=== PATIENT | male | born 1970 | race Two or more races ===

== ENCOUNTER 2025-02-05 15:17 | Emergency (ER) | payer MEDICAID, SELFPAY ==
[2025-02-05 15:19] VITALS: BMI 26.6
[2025-02-05 16:14] VITALS: BP 127/79; PULSE 87; RESP 18; TEMP 36.9; O2SAT 99
--- NOTE | 2025-02-05 16:23 | XR_ITS ---
Examination: PA lateral chest 2 views TECHNIQUE: Upright PA lateral chest 2 views Exam date and time: February 05, 2025 1702 hours INDICATIONS: Chest pain today. FINDINGS: Normal heart size. Lungs are clear. The osseous structures are intact IMPRESSION: No active disease
--- NOTE | 2025-02-05 16:23 | EKG_ITS ---
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
--- NOTE | 2025-02-05 16:23 | PD.EDRME ---
Rapid Medical Screening Exam RME Arrival date/time: 02/05/25 15:17 This is a 54-year-old male presents emergency department with complaints of generalized weakness, fatigue worsening over 1 week. He does report his symptoms started after taking 1 scoop of creatinine [id number]. I have greeted and performed a focused initial assessment of this patient. Initial appropriate labs ordered at this time. A comprehensive ED assessment and evaluation of the patient and analysis of all test and completion of medical decision making process will be conducted by additional ED provider. Chief Complaint: Weakness Time Seen by Provider: 02/05/25 16:09 Vital signs: Vital Signs Temperature 98.5 F 02/05/25 16:14 Pulse Rate 87 02/05/25 16:14 Respiratory Rate 18 02/05/25 16:14 Blood Pressure 127/79 02/05/25 16:14 Pulse Oximetry (%) 99 02/05/25 16:14 Oxygen Delivery Method Room Air 02/05/25 16:14
[2025-02-05 16:49] LABS: Basophils % (Auto) 0 % (0-2.5); Eosinophils # (Auto) 0.1 Thou/mm3 (0.0-0.5); Eosinophils % (Auto) 1 % (0-10); Hematocrit 39.2 % (41.0-53.0); Hemoglobin 13.9 g/dL (13.5-16.0); Immature Granulocytes % (Auto) 1 % (0-0); Immature Granulocytes Auto 0.11 Thou/mm3 (0.00-0.00); Lymphocytes # (Auto) 1.7 Thou/mm3 (1.0-4.8); Lymphocytes % (Auto) 16 % (10-50); Mean Corpuscular HGB Conc 35.5 g/dl (31.0-37.0); Mean Corpuscular Hemoglobin 30.4 pg (25.0-35.0); Mean Corpuscular Volume 86 fL (80-100); Monocytes # (Auto) 0.7 Thou/mm3 (0.0-0.8); Monocytes % (Auto) 7 % (0-12); Neutrophils # (Auto) 7.6 Thou/mm3 (1.8-7.7); Neutrophils % (Auto) 74 % (37-80); Nucleated Red Blood Cell % 0 /100 WBC (0); Platelet Count 141 Thou/mm3 (140-440); RDW Standard Deviation 40.7 fL (35.1-43.9); Red Blood Count 4.57 Miln/mm3 (4.50-5.90); White Blood Count 10.2 Thou/mm3 (3.8-10.6)
[2025-02-05 17:05] LABS: Partial Thromboplastin Time 24.5 Seconds (22.0-36.0); Prothrombin Time 10.9 Seconds (9.0-12.2)
[2025-02-05 17:19] LABS: B-Type Natriuretic Peptide 31 pg/mL (0-100)
[2025-02-05 17:23] LABS: Alanine Aminotransferase 100 U/L (10-49); Albumin, Serum 3.6 gm/dL (3.5-5.0); Albumin/Globulin Ratio 1.3 (1.2-2.2); Alkaline Phosphatase 122 U/L (46-116); Anion Gap 8 (7-16); Aspartate Amino Transferase 78 U/L (0-34); BUN/Creatinine Ratio 14 Ratio (12-20); Bilirubin,Total 0.9 mg/dL (0.3-1.2); Blood Urea Nitrogen 15 mg/dL (9-23); Calcium 8.6 mg/dL (8.3-10.6); Calcium (Corrected) 8.9 mg/dL (8.5-10.1); Carbon Dioxide 24.8 mMol/L (20.0-31.0); Chloride 101 mMol/L (98-107); Creatine Kinase 45 U/L (34-171); Creatinine (Component) 1.1 mg/dL (0.6-1.3); Estimated Creatinine Clearance 75.1 mL/min (>60); Globulin 2.8 gm/dL (2.3-3.5); Glucose 172 mg/dL (74-106); Lipase 66 U/L (12-53); Magnesium 2.3 mg/dL (1.6-2.6); Osmolality,Calculated 273 (275-295); Sodium 134 mMol/L (136-145); Total Protein 6.4 gm/dL (5.7-8.2); Troponin I < 0.002 ng/mL (0.0-0.045); eGFR > 60 See Note
--- NOTE | 2025-02-05 19:31 | PD.EDADULT ---
ED General RME/HPI General Chief complaint: Weakness Stated complaint: WEAKNESS AND UNABLE TO SLEEP SINCE LAST WEEK Time Seen by Provider: 02/05/25 16:09 Arrival date/time: 02/05/25 15:17 54-year-old male presents with a 2-week history of fatigue and weakness as well as difficulty sleeping for 8 days and headache for the past 7 days. He has also had a chronic cough for which she takes Tessalon Perles. His primary care physician is located in [facility]. He was also given hydroxyzine for sleep as well as ibuprofen for his headaches, which he states is not helping. He denies fever but has had chills. Shortness of breath or pain in his chest, nausea, vomiting, diarrhea or abdominal pain. Mode of arrival: ambulatory Limitations: language barrier (Clinical Biostatistician utilized.) RME / HPI RME / HPI narrative: 02/05/25 15:17 This is a 54-year-old male presents emergency department with complaints of generalized weakness, fatigue worsening over 1 week. He does report his symptoms started after taking 1 scoop of creatinine [id number]. I have greeted and performed a focused initial assessment of this patient. Initial appropriate labs ordered at this time. A comprehensive ED assessment and evaluation of the patient and analysis of all test and completion of medical decision making process will be conducted by additional ED provider. Related Data Previous Rx's ?Medication ?Instructions ?Recorded [id number] 250 2 tab PO Q6H PRN headache #30 tabs 02/05/25 mg-250 mg-65 mg tablet (Excedrin Migraine) levocetirizine 5 mg tablet (Xyzal) 5 mg PO QPM PRN allergy symptoms 02/05/25 #30 tabs Allergies Allergy/AdvReac Type Severity Reaction Status Date / Time No Known Allergies Allergy Verified 02/05/25 15:19 Review of Systems Review of Systems Systems Reviewed: All systems reviewed, normal except as documented Constitutional Constitutional: Reports chills, Reports fatigue, Reports headache(s) and Reports malaise ENT Ears, Nose, Mouth, and Throat: Denies dizziness, Reports headache(s) and Denies vertigo Cardiovascular Cardiovascular: Denies chest pain, Denies dyspnea, Denies dyspnea on exertion, Denies irregular heart rhythm, Denies lightheadedness, Denies palpitations and Denies syncope Respiratory Respiratory: Reports cough, Denies dyspnea and Denies dyspnea on exertion Gastrointestinal Gastrointestinal: Denies abdominal pain, Denies constipation, Denies nausea and Denies vomiting Neurologic Neurologic: Reports as per HPI, Denies dizziness, Reports headache(s), Denies syncope and Denies vertigo Psychiatric Psychiatric: Reports abnormal sleep pattern Endocrine Endocrine: Reports fatigue and Denies palpitations ED Exam General Limitations: Present language barrier (Clinical Biostatistician utilized.) Head Head exam: Present atraumatic and normocephalic Eye Eye exam: Present EOMI and scleral icterus; Absent conjunctival injection ENT ENT exam: Present normal oropharynx, mucous membranes moist and TM's normal bilaterally Expanded ENT Exam Nose exam: Present other (pale boggy nares); Absent sinus tenderness Mouth exam: Present normal external inspection Throat exam: Present normal inspection; Absent tonsillar erythema, tonsillomegaly or tonsillar exudate Neck Neck exam: Present normal inspection and full ROM; Absent lymphadenopathy Chest Chest inspection: Present normal inspection Respiratory Respiratory exam: Present normal lung sounds bilaterally and other (tickle type cough) Cardiovascular Cardiovascular exam: Present regular rate and normal rhythm Abdominal Exam Abdominal exam: Present soft; Absent tenderness, guarding or rebound Extremities Exam Extremities exam: Present normal inspection Neurological Exam Neurological exam: Present alert and oriented X3 Psychiatric Psychiatric exam: Present anxious Skin Skin exam: Present warm, dry and intact Course Orders Category Date Time Status Bedside COVID-19 Antigen Test NOW Care 02/05/25 16:23 Active Bedside Influenza A&B Antigen Test NOW Care 02/05/25 16:23 Completed EKG (ED ONLY) *Do not use* NOW Care 02/05/25 16:23 Completed EKG (ED Only) Stat Exams 02/05/25 16:23 Draft XR chest 2V Stat Exams 02/05/25 16:23 Completed B-Type Natriuretic Peptide Stat Lab 02/05/25 16:39 Completed CBC Stat Lab 02/05/25 16:39 Completed CK [Creatine Kinase] Stat Lab 02/05/25 16:39 Completed Comprehensive Metabolic Panel Stat Lab 02/05/25 16:39 Completed Lipase Stat Lab 02/05/25 16:39 Completed Magnesium Stat Lab 02/05/25 16:39 Completed Partial Thromboplastin Time Stat Lab 02/05/25 16:39 Completed Prothrombin Time with INR Stat Lab 02/05/25 16:39 Completed Troponin I Stat Lab 02/05/25 16:39 Completed Vital Signs Vital signs: Vital Signs Temperature 98.5 F 02/05/25 16:14 Pulse Rate 87 02/05/25 16:14 Respiratory Rate 18 02/05/25 16:14 Blood Pressure 127/79 02/05/25 16:14 Pulse Oximetry (%) 99 02/05/25 16:14 Oxygen Delivery Method Room Air 02/05/25 16:14 MDM Diagnosis Differential Diagnosis ED Complaint MDM: Hypotension, hypo/hyperglycemia, pneumonia, Sinusitis, Rhinitis Medical Decision Making Differential Diagnosis Differential Diagnosis: Hypotension, hypo/hyperglycemia, pneumonia, Sinusitis, Rhinitis Lab Data Lab results reviewed: Yes I reviewed the patient's lab results. Lab results narrative: CBC is normal CMP is normal with the exception of an elevated glucose of 172 and elevated LFTs of AST 78, ALT 100 (he denies any EtOH history) alk phos 122. Troponin is normal and BNP is normal. Lipase is mildly elevated at 66. 02/05/25 16:39 02/05/25 16:39 Labs: Lab Results 02/05/25 Range/Units 16:39 WBC 10.2 (3.8-10.6) Thou/mm3 RBC 4.57 (4.50-5.90) Miln/mm3 Hgb 13.9 (13.5-16.0) g/dL Hct 39.2 L (41.0-53.0) % MCV 86 (80-100) fL MCH 30.4 (25.0-35.0) pg MCHC 35.5 (31.0-37.0) g/dl RDW Std Deviation 40.7 (35.1-43.9) fL Plt Count 141 (140-440) Thou/mm3 Neut % (Auto) 74 (37-80) % Lymph % (Auto) 16 (10-50) % [place] % (Auto) 7 (0-12) % Eos % (Auto) 1 (0-10) % Baso % (Auto) 0 (0-2.5) % Neut # (Auto) 7.6 (1.8-7.7) Thou/mm3 Lymph # (Auto) 1.7 (1.0-4.8) Thou/mm3 [place] # (Auto) 0.7 (0.0-0.8) Thou/mm3 Eos # (Auto) 0.1 (0.0-0.5) Thou/mm3 Baso # (Auto) 0.0 (0.0-0.2) Thou/mm3 Immature Gran # (Auto) 0.11 H (0.00-0.00) Thou/mm3 Absolute Nucleated RBC 0.00 (0.00-0.00) Thou/mm3 Immature Gran % 1 H (0-0) % Nucleated RBC % 0 (0) /100 WBC PT 10.9 (9.0-12.2) Seconds INR 1.0 (0.9-1.3) APTT 24.5 (22.0-36.0) Seconds Sodium 134 L (136-145) mMol/L Potassium 4.0 (3.4-5.1) mMol/L Chloride 101 (98-107) mMol/L Carbon Dioxide 24.8 (20.0-31.0) mMol/L Anion Gap 8 (7-16) BUN 15 (9-23) mg/dL Creatinine 1.1 (0.6-1.3) mg/dL Estim Creat Clear Calc 75.1 (>60) mL/min eGFR > 60 (60 - ) See Note BUN/Creatinine Ratio 14 (12-20) Ratio Glucose 172 H (74-106) mg/dL Calculated Osmolality 273 L (275-295) Calcium 8.6 (8.3-10.6) mg/dL Corrected Calcium 8.9 (8.5-10.1) mg/dL Magnesium 2.3 (1.6-2.6) mg/dL Total Bilirubin 0.9 (0.3-1.2) mg/dL AST 78 H (0-34) U/L ALT 100 H (10-49) U/L Alkaline Phosphatase 122 H (46-116) U/L Total Creatine Kinase 45 (34-171) U/L Troponin I < 0.002 (0.0-0.045) ng/mL B-Natriuretic Peptide 31 (0-100) pg/mL Total Protein 6.4 (5.7-8.2) gm/dL Albumin 3.6 (3.5-5.0) gm/dL Globulin 2.8 (2.3-3.5) gm/dL Albumin/Globulin Ratio 1.3 (1.2-2.2) Lipase 66 H (12-53) U/L Radiology Data Radiology results reviewed: Yes I reviewed the patient's radiology results. Radiology results narrative: CXR: FINDINGS: Normal heart size. Lungs are clear. The osseous structures are intact IMPRESSION: No active disease ECG Data Tracing #1: ECG Narrative: NSR at 80. No ST elevation or T wave changes. ECG compared to prior tracings: there are no prior tracings available for comparison Discharge Plan Plan Patient Disposition: HOME (Self Care) Disposition Comment: Stable Prescriptions/Referrals Prescriptions/Med Rec: New levocetirizine [Xyzal] 5 mg tablet 5 mg PO QPM PRN (Reason: allergy symptoms) Qty: 30 0RF Excedrin Migraine 250-250-65 mg tablet 2 tab PO Q6H PRN (Reason: headache) Qty: 30 0RF Referrals: No Primary/Family,Physician [Primary Care Provider] - In 1 week Problem List Clinical Impression: Allergic rhinosinusitis, Insomnia disorder, Headache Patient/Caregiver Discharge Instructions Discharge Activity: activity as tolerated Education Materials: ED Insomnia, Allergy Overview Additional Instructions: Follow-up with your primary care physician in 24 to 48 hours. Return to the ED for any new or worsening symptoms. Print Language: Bengali Stand Alone Forms: Kaitlynn Award Info., Patient Portal Info Letter, Work/School Release PA/[employer]PER[employer] SPECIALIST Supervising Physician PA/[employer] SPECIALIST Supervising Physician: Dr. Menjivar
[2025-02-05] MEDS: KETOROLAC INJ 60 MG/2 ML VIAL 30 MG IM (20:16)
== END 2025-02-05 20:21 | disposition home or self-care (01) ==
PROVIDERS: Nurse Practitioner Primary Care; Emergency Provider Family Medicine
DX: J30.9 Allergic rhinitis, unspecified (principal); G47.00 Insomnia, unspecified; R51.9 Headache, unspecified; R53.83 Other fatigue
CPT/HCPCS: 36415; 71046; 80053; 82550; 83690; 83735; 83880; 84484; 85025; 85610; 85730; 87400; 87811; 93005; 96372; 99283; J1885